=== PATIENT | male | born 1965 | race Caucasian/White ===

== ENCOUNTER 2017-03-10 15:27 | Day surgery (SDC) | payer OTHER ==
[2017-03-09 11:26] VITALS: BMI 26.6
[~2017-03-10 15:27] MED LIST: ceFAZolin IN SWFI 2 GM/20 ML SYRINGE IVP ONE
[2017-03-10] MEDS ORDERED: LACTATED RINGERS 1,000 ML IV ONE (15:46)
[2017-03-10] MEDS ORDERED: DEXAMETHASONE SOD PHOS (MDV) 100 MG/10 ML VIAL IVP ONE (15:46)
[2017-03-10] MEDS ORDERED: ONDANSETRON 4 MG/2 ML VIAL IVP ONE (15:47)
[2017-03-10] MEDS ORDERED: LIDOCAINE 1% 20 ML VIAL (10MG/ML) FOR IV START INTRADERMA ONE (15:47)
[2017-03-10] MEDS ORDERED: HYDROmorphone (PF) 1 MG/ML ONE (17:00)
[2017-03-10] MEDS ORDERED: LIDOCAINE 1% INJ 10MG/ML (20 ML MDV) ONE (17:00)
[2017-03-10] MEDS ORDERED: ROCURONIUM BROMIDE 10 MG/ML 10 ML VIAL IV ONE (17:00)
[2017-03-10] MEDS ORDERED: SUCCINYLCHOLINE CHLORIDE 100 MG/5 ML SYR IV ONE (17:00)
[2017-03-10] MEDS ORDERED: ePHEDrine SULFATE/0.9% NACL/PF 50 MG/5 ML SYRINGE IV ONE (17:00)
[2017-03-10] MEDS ORDERED: PROPOFOL 10 MG/ML 20 ML VIAL IV ONE (17:00)
[2017-03-10] MEDS ORDERED: MIDAZOLAM 2 MG/2 ML VIAL ONE (17:00)
[2017-03-10] MEDS ORDERED: PHENYLEPHRINE-0.9% NACL SYG 1 MG/10 ML SYRINGE ONE (17:00)
[2017-03-10] MEDS ORDERED: fentaNYL (PF) 50 MCG/ML 2 ML AMP ONE (17:00)
[2017-03-10] MEDS ORDERED: ceFAZolin 1,000 MG in SODIUM CHLORIDE 0.9% 1,000 ML IRRIGATION ONE (18:09)
[2017-03-10 19:01] VITALS: TEMP 97.8
[2017-03-10 19:03] VITALS: RESP 16
[2017-03-10] MEDS ORDERED: SODIUM CHLORIDE 0.9% 1,000 ML IV ONE (19:21)
[2017-03-10 20:04] VITALS: BP 146/85; PULSE 89
--- NOTE | 2017-03-11 13:48 | OP ---
OPERATIVE REPORT DATE OF PROCEDURE: 03/10/2017. PREOPERATIVE DIAGNOSIS: Left displaced midshaft clavicle fracture. POSTOPERATIVE DIAGNOSIS: Left displaced midshaft clavicle fracture. PROCEDURE PERFORMED: Open reduction, internal fixation, left clavicle fracture. SURGEON: Maurice Snyder MD. CLINICAL SERVICES SPECIALIST: DENICE Dobson. ANESTHESIA: General endotracheal. ESTIMATED BLOOD LOSS: 25 mL. COMPLICATIONS: None apparent. DISPOSITION: Postanesthesia care unit. INDICATIONS: Feng is a very pleasant 52-year-old male who fell onto his left shoulder. He had immediate pain and deformity noted about the clavicle. He presented to the emergency department. X-rays revealed a significantly displaced midshaft clavicle fracture. He was given a sling and appropriate follow up with me in my office. I saw him the other day. His displacement is 200%. The recommendation was for open reduction, internal fixation. The patient would like to proceed with that operative intervention. Long discussion was held with Feng with regards to treatment options. The risks of the procedure were all discussed with him in detail. These risks included, but were not limited to risk of infection, nerve damage, bleeding, pain, and a small risk of deep vein thrombosis, which could lead to fatal pulmonary embolism. Further risks include deep infection as well as possibility for nonunion and possibility for hardware irritation, which could require removal of the plate and screws. The patient understands the operation as well as the fact that there was no guarantee of improvement of his symptoms. An appropriate informed consent was obtained. DESCRIPTION OF THE PROCEDURE: The patient was identified in the preoperative holding area. Surgical site was marked by both the patient and myself. He was given 2 grams of Ancef IV for prophylactic purposes. He was then transferred to the operative suite. He was placed supine on the operating room table. The patient was then intubated endotracheally and received general anesthesia throughout the operative procedure. Examination under anesthesia was then performed and the findings were noted as above. The patient was then placed into the beach chair position well-padded in preparation for surgery. Great care was taken to ensure the cervical spine is in neutral alignment, well-padded and maintained that way throughout the operative procedure. Great care was also taken to ensure that his legs were appropriately padded as well. The patient's left upper extremity was then prepped and draped in usual sterile fashion. Standard surgical pause then undertaken to ensure that appropriate preoperative antibiotics have been given and that we were operating on the correct site. All staff in the room were in agreement and we proceeded. The acromion as well as the AC joint, coracoid were marked with surgical pen. The clavicle was also marked with surgical pen. I then marked the planned incision site on the anterior aspect of the clavicle with surgical pen. I then proceeded. The incision was then made with a 15-blade scalpel. Dissection was carried down utilizing the ArthroCare wand to the superior aspect of the clavicle. Great care was taken to ensure thick flaps for fascial and muscular coverage of the plate and screws at the end of the case. Dissection of the fracture was then carried out very carefully with a [place] and soft tissue elevator. This was done as to avoid any iatrogenic damage to the neurovascular structures. He had a midshaft highly displaced midshaft clavicle fracture. There was an anterior comminuted piece as well. This was fairly large. Great care was taken to minimize any periosteal dissection to maintain as much blood supply as possible to the fracture site. I then proceeded to reduce the fracture. Reduction clamps were then utilized. I then was able to use the plate to reduce the fracture as well. I chose an Acumed precontoured superior clavicle plate. This was a 3.5 mm plate. I placed the plate on the superior surface of the clavicle. I placed a 3.5 mm bicortical nonlocking screw through the oblong hole on the medial aspect of the fracture. This had excellent purchase in bone. I was then able to utilize the plate to reduce the fracture. I then placed a 3.5 mm bicortical nonlocking screw through the lateral oblong hole of the plate. This reduced the fracture very nicely. I then was able to reduce the anterior comminuted piece. This was fairly large. I did have a good cortical read on this fracture fragment. I was able to fix the fracture fragment with two 2.3 mm bicortical screws to both the medial and lateral fragment. These screws were anterior to posterior screws. They had excellent purchase in bone and were placed in compression mode. This fixed the anterior comminuted piece very nicely back to both the medial and lateral fragments. I then placed two 3.5 mm bicortical locking screws on both the medial aspect of the plate and the lateral aspect of the plate to complete the fixation. At this point in time, no further work seemed necessary. The fracture had been reduced as anatomically as possible. The large anterior comminuted piece was also reduced as anatomically as possible with good fixation. All the screws were well fixated in bone. At this point time, no further work seemed necessary. The wound was thoroughly irrigated with sterile saline solution with antibiotic added. The trapezial and deltoid fascia was closed with #1 Vicryl interrupted suture. This provided a good thick soft tissue closure over the fixation. The wound was again thoroughly irrigated with sterile saline solution with antibiotic added. The subcutaneous tissue was closed with 2-0 Vicryl interrupted suture and the skin was closed with a running 3-0 Quill suture. Dermabond was applied to the incision. Sterile compressive dressing was then applied. The patient's left upper extremity was placed into a standard sling. All sponge and needle counts were deemed correct prior to closure. The patient tolerated the procedure without apparent complication. He was transferred to the recovery room in stable condition. MMODNeida / IJN: [id number] /
== END 2017-03-10 20:16 | disposition home or self-care (01) ==
LOC: OR 15:27
PROVIDERS: ATTEND Orthopaedic Surgery Sports Medicine
DX: S42.022A Displaced fracture of shaft of left clavicle, initial encounter for closed fracture (principal); W00.0XXA Fall on same level due to ice and snow, initial encounter; Z87.891 Personal history of nicotine dependence
CPT/HCPCS: 23515; C1713; J2250; J0690 ×2; J2405; J2001; J3010; J1170; J1100; J2370; J0330; J2704

== ENCOUNTER 2017-05-23 08:32 | Day surgery (SDC) | payer OTHER ==
[2017-05-19 08:38] VITALS: BMI 26.6
[~2017-05-23 08:32] MED LIST changes: +LACTATED RINGERS 1,000 ML IV SCH; -ceFAZolin IN SWFI 2 GM/20 ML SYRINGE IVP ONE
[2017-05-23 09:11] VITALS: TEMP 98.5
[2017-05-23] MEDS ORDERED: LIDOCAINE 1% INJ 10MG/ML (20 ML MDV) ONE (09:53)
[2017-05-23] MEDS ORDERED: PROPOFOL 10 MG/ML 20 ML VIAL IV ONE (09:53)
--- NOTE | 2017-05-23 10:30 | P.PCN ---
Date of Procedure: 05/23/17 Procedure(s) Performed: Procedure: Colonoscopy and biopsy. Preoperative diagnosis: Screening for neoplasia. Postoperative diagnosis: Diminutive polyp in the distal sigmoid biopsied, otherwise, exam to the cecum within normal limits. Preparation: HalfLytely prep. Sedation: Was provided by anesthesia. Brief clinical history: The patient is a 52-year-old male who was scheduled for this evaluation for screening for neoplasia age being his risk factor. He has no abdominal complaints, bleeding or anemia. No family history of colon cancer. This would be his first colonoscopy. Procedure: With the patient on his left lateral decubitus position and after informed consent and adequate sedation, the perianal area was inspected and it did not show any fissures or fistulas. There were no masses felt on digital rectal examination. The Olympus CFQ 160L video colonoscope was then inserted in the rectum in the usual fashion and advanced to the cecum. The mucosa appeared healthy. There was a diminutive polyp in the distal sigmoid which was biopsied, otherwise, the exam to the cecum showed no large polyps or cancer or any obvious diverticular disease or other pathology. I retroflexed the endoscope in the rectum before the endoscope was withdrawn. The patient tolerated the procedure well. Plan: The patient was reassured. He will follow up with you as planned and I recommended repeat exam in 5-10 years depending on pathology results.
[2017-05-23 10:50] VITALS: BP 128/85; PULSE 59; RESP 16
== END 2017-05-23 11:04 | disposition home or self-care (01) ==
LOC: ORWHC2ENDO 08:32
DX: Z12.11 Encounter for screening for malignant neoplasm of colon (principal); K63.5 Polyp of colon; Z87.891 Personal history of nicotine dependence
CPT/HCPCS: 88305; 45380; J2001; J2704

== ENCOUNTER 2017-06-29 22:59 | Emergency (ER) | payer OTHER ==
[2017-06-29 23:04] VITALS: TEMP 98.1
[2017-06-29] MEDS ORDERED: SODIUM CHLORIDE 0.9% 1,000 ML IV STA (23:07)
[2017-06-29] MEDS ORDERED: RX INFO: IV CONTRAST WAS GIVEN 1 EACH MISC MISCELLANE PRN (23:07)
--- NOTE | 2017-06-29 23:11 | ED ---
General Adult HPI - General Chief complaint: Syncope Stated complaint: syncope Time Seen by Provider: 06/29/17 23:02 Source: patient, RN notes reviewed, old records reviewed Mode of arrival: EMS Limitations: no limitations - History of Present Illness Initial comments: This is a 52-year-old male the ER for evasive syncopal event. Patient does not feel well once getting up from sitting, walk across is complications did walking across into his kitchen and passed out. Patient states he has some right leg pain prior to passing out. At this time he has no complaints no headache no chest pain or shortness of breath no abdominal pain, no prior medical history no prior history of passing out. No recent travel history or sick contacts does have family history of DVT - Related Data Home Medications Medication Instructions Recorded Confirmed No Known Home Medications [No 05/19/17 06/29/17 Known Home Medications] Allergies Allergy/AdvReac Type Severity Reaction Status Date / Time No Known Allergies Allergy Verified 05/19/17 08:35 Review of Systems ROS Statement: Those systems with pertinent positive or pertinent negative responses have been documented in the HPI. ROS Other: All systems not noted in ROS Statement are negative. Past Medical History Past Medical History: No Reported History Additional Past Medical History / Comment(s): FX LT CLAVICLE LAST WEEK AFTER FALL ON ICE 02/2017 History of Any Multi-Drug Resistant Organisms: None Reported Past Surgical History: Orthopedic Surgery Additional Past Surgical History / Comment(s): RT KNEE SCOPE X 2. LT CLAVICLE SX Past Anesthesia/Blood Transfusion Reactions: No Reported Reaction Past Psychological History: No Psychological Hx Reported Smoking Status: Former smoker Past Alcohol Use History: Daily - Past Family History Mother Family Medical History: Deep Vein Thrombosis (DVT) General Exam Limitations: no limitations General appearance: alert, in no apparent distress Head exam: Present: atraumatic, normocephalic, normal inspection Eye exam: Present: normal appearance, PERRL, EOMI. Absent: scleral icterus, conjunctival injection, periorbital swelling ENT exam: Present: normal exam, mucous membranes moist Neck exam: Present: normal inspection. Absent: tenderness, meningismus, lymphadenopathy Respiratory exam: Present: normal lung sounds bilaterally. Absent: respiratory distress, wheezes, rales, rhonchi, stridor Cardiovascular Exam: Present: regular rate, normal rhythm, normal heart sounds. Absent: systolic murmur, diastolic murmur, rubs, gallop, clicks GI/Abdominal exam: Present: soft, normal bowel sounds. Absent: distended, tenderness, guarding, rebound, rigid Extremities exam: Present: normal inspection, full ROM, normal capillary refill. Absent: tenderness, pedal edema, joint swelling, calf tenderness Back exam: Present: normal inspection Neurological exam: Present: alert, oriented X3, CN II-XII intact Psychiatric exam: Present: normal affect, normal mood Skin exam: Present: warm, dry, intact, normal color. Absent: rash Course Vital Signs 06/29/17 23:01 Temperature 98.1 F Pulse Rate 56 L Respiratory 20 Rate Blood Pressure 148/80 O2 Sat by Pulse 97 Oximetry EKG Findings - EKG Comments: EKG Findings:: EKG shows normal sinus rhythm rate of 62, WA 206, QRS 108, QTC 401 Medical Decision Making - Lab Data Result diagrams: 06/29/17 23:10 06/29/17 23:10 Lab Results 06/29/17 06/29/17 06/29/17 Range/Units 23:10 23:10 23:10 WBC 5.6 (3.8-10.6) k/uL RBC 4.61 (4.30-5.90) m/uL Hgb 13.8 (13.0-17.5) gm/dL Hct 38.8 L (39.0-53.0) % MCV 84.3 (80.0-100.0) fL MCH 30.1 (25.0-35.0) pg MCHC 35.6 (31.0-37.0) g/dL RDW 12.8 (11.5-15.5) % Plt Count 184 (150-450) k/uL Neutrophils % 49 % Lymphocytes % 42 % Monocytes % 5 % Eosinophils % 2 % Basophils % 0 % Neutrophils # 2.7 (1.3-7.7) k/uL Lymphocytes # 2.4 (1.0-4.8) k/uL Monocytes # 0.3 (0-1.0) k/uL Eosinophils # 0.1 (0-0.7) k/uL Basophils # 0.0 (0-0.2) k/uL Sodium 138 (137-145) mmol/L Potassium 3.7 (3.5-5.1) mmol/L Chloride 99 (98-107) mmol/L Carbon Dioxide 23 (22-30) mmol/L Anion Gap 16 mmol/L BUN 18 (9-20) mg/dL Creatinine 0.90 (0.66-1.25) mg/dL Est GFR (CKD-EPI)AfAm >90 (>60 ml/min/1.73 sqM) Est GFR (CKD-EPI)NonAf >90 (>60 ml/min/1.73 sqM) Glucose 100 H (74-99) mg/dL Calcium 9.4 (8.4-10.2) mg/dL Magnesium 1.7 (1.6-2.3) mg/dL Total Bilirubin 0.5 (0.2-1.3) mg/dL AST 29 (17-59) U/L ALT 33 (21-72) U/L Alkaline Phosphatase 53 (38-126) U/L Total Creatine Kinase 124 (55-170) U/L CK-MB (CK-2) 1.4 (0.0-2.4) ng/mL CK-MB (CK-2) Rel Index 1.1 Troponin I <0.012 (0.000-0.034) ng/mL Total Protein 6.3 (6.3-8.2) g/dL Albumin 4.1 (3.5-5.0) g/dL Disposition Clinical Impression: Syncope Disposition: HOME SELF-CARE Condition: Good Instructions: Syncope (ED) Is patient prescribed a controlled substance at d/c from ED?: No Referrals: Blu Santamaria DO [Primary Care Provider] - 1-2 days
[2017-06-29 23:22] LABS: Basophils % (A) 0 %; Eosinophils # (A) 0.1 k/uL (0-0.7); Eosinophils % (A) 2 %; HCT 38.8 % (39.0-53.0); HGB 13.8 gm/dL (13.0-17.5); Lymphocytes # (A) 2.4 k/uL (1.0-4.8); Lymphocytes % (A) 42 %; MCH 30.1 pg (25.0-35.0); MCHC 35.6 g/dL (31.0-37.0); MCV 84.3 fL (80.0-100.0); Mean Platelet Volume 7.7; Monocytes # (A) 0.3 k/uL (0-1.0); Monocytes % (A) 5 %; Neutrophils # (A) 2.7 k/uL (1.3-7.7); Neutrophils % (A) 49 %; Platelet Count 184 k/uL (150-450); RBC 4.61 m/uL (4.30-5.90); RDW 12.8 % (11.5-15.5); WBC 5.6 k/uL (3.8-10.6)
[2017-06-29 23:31] LABS: ALT 33 U/L (21-72); AST 29 U/L (17-59); Albumin 4.1 g/dL (3.5-5.0); Alkaline Phosphatase 53 U/L (38-126); Anion Gap 16 mmol/L; Blood Urea Nitrogen 18 mg/dL (9-20); Calcium 9.4 mg/dL (8.4-10.2); Carbon Dioxide 23 mmol/L (22-30); Chloride 99 mmol/L (98-107); Glucose 100 mg/dL (74-99); Magnesium 1.7 mg/dL (1.6-2.3); Potassium 3.7 mmol/L (3.5-5.1); Sodium 138 mmol/L (137-145); Total Bilirubin 0.5 mg/dL (0.2-1.3); Total Protein 6.3 g/dL (6.3-8.2)
[2017-06-29 23:41] LABS: Creatine Kinase 124 U/L (55-170)
[2017-06-29 23:44] LABS: INR 1.1 (<1.2); Partial Thromboplastin Time 21.9 sec (22.0-30.0); Prothrombin Time 10.3 sec (9.0-12.0)
--- NOTE | 2017-06-29 23:46 | CT ---
EXAMINATION TYPE: CT brain sangeeta murrieta DATE OF EXAM: 06/29/2017 COMPARISON: NONE HISTORY: pt. had an episode of syncope from leg pain. CT DLP: 1545.30 mGycm Automated exposure control for dose reduction was used. TECHNIQUE: CT scan of the head and cervical spine are performed without contrast. FINDINGS: Ventricles and sulci appear normal. There is no mass effect nor midline shift. There is n o sign of intracranial hemorrhage. The calvarium is intact. Cervical vertebra have normal alignment. There is mild narrowing of cervical disc spaces from C3 to C 7. There is anterior spurring at C6-7. I see no sign of bony spinal stenosis. Facet joints are intact . The skull base is intact. There are emphysematous changes at the lung apices. IMPRESSION: Negative CT scan of the brain. Mild spondylotic changes in the cervical spine. No fracture.
[2017-06-29 23:54] LABS: Creatine Kinase MB 1.4 ng/mL (0.0-2.4); Troponin I <0.012 ng/mL (0.000-0.034)
--- NOTE | 2017-06-29 23:56 | CT ---
EXAMINATION TYPE: CT angio chest DATE OF EXAM: 06/29/2017 11:49 PM COMPARISON: NONE HISTORY: pt. had an episode of syncope from leg pain. CT DLP: 1917.50 mGycm Automated exposure control for dose reduction was used. CONTRAST: CTA scan of the thorax is performed with IV Contrast, patient injected with 100 mL of Isovue 370, pul monary embolism protocol. . FINDINGS: There are 3-D post processed images. Thoracic aorta has normal size without evidence of aneurysm or dissection. There is no mediastinal ad enopathy. Ascending aorta measures 3.6 cm. There are no hilar masses. I see no filling defects in the pulmonary arteries. Heart size is normal. There is no pericardial effusion. There is no pleural effu bon. There is mild subsegmental atelectasis at the lung bases. There is no evidence of a pulmonary m ass. Lungs are clear of consolidation. There is some mild reticular density at the right lung apex pr obably from scarring. There are mild emphysematous changes at the lung apices. Bony thorax is intact. . IMPRESSION: MILD PULMONARY EMPHYSEMA. SUBSEGMENTAL ATELECTASIS AT THE LUNG BASES. NO EVIDENCE OF PULMONARY EMBOLI SM.
--- NOTE | 2017-06-29 23:59 | CT ---
EXAMINATION TYPE: CT abdomen pelvis w con DATE OF EXAM: 06/29/2017 COMPARISON: NONE HISTORY: on synapse. pt. had an episode of syncope from leg pain. Abdominal pain CT DLP: 1917.50 mGycm Automated exposure control for dose reduction was used. TECHNIQUE: Helical acquisition of images was performed from the lung bases through the pelvis. CONTRAST: Performed without Oral Contrast and with IV Contrast, patient injected with 100 mL of Isovue 370. FINDINGS: Lung bases are clear of infiltrate. There is no pleural effusion. Heart size is normal. There is no p ericardial effusion. There is mild subsegmental atelectasis at the posterior lung bases. Liver spleen pancreas gallbladder appear normal. Bile ducts are not dilated. There is no adrenal mass. Kidneys show satisfactory contrast opacification. There is no hydronephrosi s. There is prominent right-sided renal pelvis. Ureters are not dilated. I see no renal obstruction. There is no retroperitoneal adenopathy. There is no ascites. Bladder distends smoothly. Prostate shawn ures 5 cm. Appendix is not seen. I see no sign of appendicitis. I see no intestinal wall thickening. There are no dilated loops. There are spondylotic changes in the lumbar spine. I see no focal bone destruction. IMPRESSION: NEGATIVE CT SCAN OF THE ABDOMEN AND PELVIS.
[2017-06-30 00:07] LABS: D-Dimer 1.79 mg/L FEU (<0.60)
[2017-06-30 00:51] VITALS: BP 124/71; PULSE 64; RESP 16
== END 2017-06-30 00:51 | disposition home or self-care (01) ==
LOC: EC 22:59
DX: R55 Syncope and collapse (principal); M79.604 Pain in right leg; Z87.891 Personal history of nicotine dependence
CPT/HCPCS: 36415; 93005; 85379; 80053; 82550; 82553; 83735; 84484; 85025; 85610; 85730; 72125; 70450; 71275; 74177; 99285; Q9967

== ENCOUNTER → 2017-09-13 | Outpatient (CLI) | payer OTHER ==
--- NOTE | 2017-09-13 23:38 | MR ---
EXAMINATION TYPE: MR knee RT wo con DATE OF EXAM: 09/13/2017 COMPARISON: None HISTORY: Right Knee pain and swelling x17 years TECHNIQUE: Multiplanar, multisequence imaging of the right knee is performed without IV contrast. FINDINGS: There is a large knee joint effusion. There is 2 cm popliteal cyst. The anterior and posterior crucia te ligaments are intact. There is moderate spurring on the patella. There is narrowing of the joint s paces medially and laterally. There is extensive spurring of the femoral and tibial condyles. There i s significant thinning of the medial meniscus. There is complex tear in the posterior horn medial men iscus extending to the inferior surface. There is very little lateral meniscus. On the T2 images there is mild increased signal on both sides of the lateral joint space. The medial collateral ligament appears intact. There is some increased si gnal in the lateral collateral ligament. IMPRESSION: Advanced osteoarthritis. Knee joint effusion with popliteal cyst. Partial tear lateral collateral ligament. Extensive tear with thinning of the posterior horn of the medial meniscus. There is very little lateral meniscus that apparently show significant thinning and lateral displacem ent. There is mild edema on both sides of the lateral joint space consistent with bone bruise.
== END | disposition home or self-care (01) ==
LOC: RADMRIMAIN 17:39
PROVIDERS: ATTEND Family Medicine
DX: M17.11 Unilateral primary osteoarthritis, right knee (principal); M71.21 Synovial cyst of popliteal space [Baker], right knee; M23.300 Other meniscus derangements, unspecified lateral meniscus, right knee

== ENCOUNTER → 2018-07-24 | Outpatient (CLI) | payer OTHER ==
--- NOTE | 2018-07-24 12:29 | XR ---
Left knee HISTORY: Left knee pain 3 views of the left knee There is tricompartmental marginal spurring and joint space loss. Suprapatellar increased density com patible joint effusion. Bone mineralization is slightly reduced. Alignment is normal. IMPRESSION: Osteoarthritis.
== END ==
LOC: RADXRMAIN 10:35
PROVIDERS: ATTEND Family Medicine
DX: M17.12 Unilateral primary osteoarthritis, left knee (principal)

== ENCOUNTER → 2018-09-04 | Outpatient (CLI) | payer OTHER ==
[2018-09-04 07:41] LABS: Basophils % (A) 1 %; Eosinophils # (A) 0.1 k/uL (0-0.7); Eosinophils % (A) 3 %; HCT 41.5 % (39.0-53.0); HGB 13.7 gm/dL (13.0-17.5); Lymphocytes # (A) 1.7 k/uL (1.0-4.8); Lymphocytes % (A) 43 %; MCH 29.3 pg (25.0-35.0); MCV 88.9 fL (80.0-100.0); Mean Platelet Volume 7.9; Monocytes # (A) 0.2 k/uL (0-1.0); Monocytes % (A) 6 %; Neutrophils # (A) 1.8 k/uL (1.3-7.7); Neutrophils % (A) 46 %; Platelet Count 163 k/uL (150-450); RBC 4.67 m/uL (4.30-5.90); RDW 13.6 % (11.5-15.5)
[2018-09-04 12:56] LABS: African American GFR (CKD) 100.6 (60.0-200.0); Anion Gap 4.3 mmol/L (4.00-12.00); Calcium 9.6 mg/dL (8.7-10.3); Carbon Dioxide 31.7 mmol/L (21.6-31.8); LDL Cholesterol,Calculated 72.6 mg/dL (0.0-131.0); Potassium 5.4 mmol/L (3.5-5.5); VLDL Calculation 10.4 mg/dL (5.00-40.00)
== END | disposition home or self-care (01) ==
LOC: LABWHC1 06:55
PROVIDERS: ATTEND Physician Assistant
DX: Z00.00 Encounter for general adult medical examination without abnormal findings (principal)
CPT/HCPCS: 36415; 80048; 80061; 84153; 85025

== ENCOUNTER → 2018-12-11 | Outpatient (CLI) | payer OTHER ==
--- NOTE | 2018-12-11 10:52 | US ---
EXAMINATION TYPE: US venous doppler duplex LE LT DATE OF EXAM: 12/11/2018 10:32 AM COMPARISON: NONE CLINICAL HISTORY: 53-year-old male M79.605 PAIN IN LT LEG. Left knee pain when patient stands. Patie nt states feeling a vein posterior left knee. No redness or swelling. No hx DVT. SIDE PERFORMED: Left TECHNIQUE: The lower extremity deep venous system is examined utilizing real time linear array sonog jace with graded compression, doppler sonography and color-flow sonography. FINDINGS: VESSELS IMAGED: External Iliac Vein (EIV) Common Femoral Vein Deep Femoral Vein Greater Saphenous Vein * Femoral Vein Popliteal Vein Small Saphenous Vein * Proximal Calf Veins (* superficial vessels) Left Leg: Negative for DVT. Community Development Officer notes: Appears positive for SVT posterior left knee. No vascular flow visualized. IMPRESSION: 1. No evidence for DVT within the left lower extremity imaged from the groin to the upper calf. 2. Prominent varicosities along the posterior aspect of the knee without detectable flow. Differentia l considerations include SVT versus very slow flow. Short interval follow-up can be considered.
--- NOTE | 2018-12-11 15:05 | XR ---
Left knee HISTORY: Left knee pain 3 views of the left knee, compared to prior exam 07/24/2018 Tricompartmental marginal spurring and joint space loss is again seen. Alignment is stable, bone mine ralization is normal. Suprapatellar increased density is compatible with joint effusion. Enthesophyte present at the insertion of the quadriceps tendon, there may be calcific tendinitis. impression: Osteoarthritis.
== END | disposition home or self-care (01) ==
LOC: RADUSWWP 09:45
PROVIDERS: ATTEND Family Medicine
DX: M17.12 Unilateral primary osteoarthritis, left knee (principal); M79.605 Pain in left leg

== ENCOUNTER → 2019-04-24 | Outpatient (CLI) | payer OTHER ==
--- NOTE | 2019-04-24 19:01 | ECHOF ---
Referral Reason:R94.31 Abn EKG MEASUREMENTS -------- HEIGHT: 195.6 cm WEIGHT: 104.3 kg BP: 134/77 RVIDd: 3.7 cm (< 3.3) IVSd: 1.2 cm (0.6 - 1.1) LVIDd: 4.9 cm (3.9 - 5.3) LVPWd: 1.3 cm (0.6 - 1.1) IVSs: 1.6 cm LVIDs: 3.2 cm LVPWs: 1.4 cm LA Diam: 3.1 cm (2.7 - 3.8) LAESV Index (A-L): 28.73 ml/m Ao Diam: 3.6 cm (2.0 - 3.7) AV Cusp: 2.4 cm (1.5 - 2.6) MV EXCURSION: 22.213 mm (> 18.000) MV EF SLOPE: 109 mm/s (70 - 150) EPSS: 1.2 cm MV E Marvin: 0.84 m/s MV DecT: 309 ms MV A Marvin: 0.71 m/s MV E/A Ratio: 1.17 TAPSE: 24.34 mm FINDINGS -------- Sinus rhythm. This was a technically adequate study. The left ventricular size is normal. There is mild concentric left ventricular hypertrophy. Overa ll left ventricular systolic function is normal with, an EF between 60 - 65 %. The right ventricle is mildly enlarged. Normal LA size by volume 22+/-6 ml/m2. The right atrium is normal in size. Interatrial and interventricular septum intact. The aortic valve is trileaflet and appears structurally normal. There is trace mitral regurgitation. The tricuspid valve appears structurally normal. The pulmonic valve was not well visualized. The aortic root size is normal. IVC Not well visulized. There is no pericardial effusion. CONCLUSIONS -------- 1. Sinus rhythm. 2. This was a technically adequate study. 3. The left ventricular size is normal. 4. There is mild concentric left ventricular hypertrophy. 5. Overall left ventricular systolic function is normal with, an EF between 60 - 65 %. 6. The right ventricle is mildly enlarged. 7. Normal LA size by volume 22+/-6 ml/m2. 8. The right atrium is normal in size. 9. Interatrial and interventricular septum intact. 10. The aortic valve is trileaflet and appears structurally normal. 11. There is trace mitral regurgitation. 12. The tricuspid valve appears structurally normal. 13. The pulmonic valve was not well visualized. 14. The aortic root size is normal. 15. IVC Not well visulized. 16. There is no pericardial effusion. CHIEF OPTOMETRY SERVICE: Gwendolyn Ramachandran RDCS
== END | disposition home or self-care (01) ==
LOC: RADECHMAIN 14:49
PROVIDERS: ATTEND Family Medicine
DX: R94.31 Abnormal electrocardiogram [ECG] [EKG] (principal)
CPT/HCPCS: 93306

== ENCOUNTER → 2019-04-24 | Outpatient (CLI) | payer OTHER ==
[2019-04-24 16:15] LABS: HCT 42.3 % (39.0-53.0); HGB 14.1 gm/dL (13.0-17.5); MCH 30.2 pg (25.0-35.0); MCHC 33.3 g/dL (31.0-37.0); MCV 90.7 fL (80.0-100.0); Platelet Count 181 k/uL (150-450); RBC 4.66 m/uL (4.30-5.90); RDW 12.3 % (11.5-15.5); WBC 6.1 k/uL (3.8-10.6)
[2019-04-24 16:20] LABS: Partial Thromboplastin Time 23.1 sec (22.0-30.0); Prothrombin Time 10.3 sec (9.0-12.0)
[2019-04-24 16:21] LABS: ALT 34 U/L (4-49); AST 31 U/L (17-59); African American GFR (CKD) >90 (>60 ml/min/1.73 sqM); Albumin 4.5 g/dL (3.5-5.0); Alkaline Phosphatase 53 U/L (38-126); Anion Gap 8 mmol/L; Blood Urea Nitrogen 19 mg/dL (9-20); Calcium 9.7 mg/dL (8.4-10.2); Carbon Dioxide 28 mmol/L (22-30); Chloride 99 mmol/L (98-107); Glucose 94 mg/dL (74-99); Non-African American GFR(CKD) >90 (>60 ml/min/1.73 sqM); Potassium 4.2 mmol/L (3.5-5.1); Sodium 135 mmol/L (137-145); Total Bilirubin 0.7 mg/dL (0.2-1.3)
== END | disposition home or self-care (01) ==
LOC: LABPAT 15:24
PROVIDERS: ATTEND Orthopaedic Surgery Sports Medicine
DX: Z01.812 Encounter for preprocedural laboratory examination (principal); M17.11 Unilateral primary osteoarthritis, right knee
CPT/HCPCS: 36415; 80053; 85027; 85610; 85730; 87070

== ENCOUNTER → 2019-11-02 | Outpatient (CLI) | payer OTHER ==
[2019-11-02 09:43] LABS: HCT 45.9 % (39.0-53.0); HGB 14.9 gm/dL (13.0-17.5); MCH 29.8 pg (25.0-35.0); MCHC 32.5 g/dL (31.0-37.0); MCV 91.6 fL (80.0-100.0); Mean Platelet Volume 8.1; Platelet Count 184 k/uL (150-450); RBC 5.01 m/uL (4.30-5.90); RDW 12.6 % (11.5-15.5); WBC 4.2 k/uL (3.8-10.6)
[2019-11-02 09:57] LABS: ALT 33 U/L (4-49); AST 32 U/L (17-59); African American GFR (CKD) >90 (>60 ml/min/1.73 sqM); Albumin 4.6 g/dL (3.5-5.0); Alkaline Phosphatase 55 U/L (38-126); Anion Gap 6 mmol/L; Blood Urea Nitrogen 18 mg/dL (9-20); Carbon Dioxide 31 mmol/L (22-30); Chloride 102 mmol/L (98-107); Glucose 110 mg/dL (74-99); Non-African American GFR(CKD) >90 (>60 ml/min/1.73 sqM); Potassium 4.6 mmol/L (3.5-5.1); Sodium 139 mmol/L (137-145); Total Protein 7.1 g/dL (6.3-8.2)
[2019-11-02 10:01] LABS: INR 0.9 (<1.2); Partial Thromboplastin Time 22.7 sec (22.0-30.0); Prothrombin Time 9.9 sec (9.0-12.0)
[2019-11-02 10:18] LABS: Appearance,Urine Clear (Clear); Bilirubin,Urine Negative (Negative); Blood,Urine Negative (Negative); Color,Urine Yellow; Glucose,Urine (UA) Negative (Negative); Ketones,Urine Negative (Negative); Leukocyte Esterase,Urine Negative (Negative); Nitrite,Urine Negative (Negative); PH, Urine 6.5 (5.0-8.0); Protein,Urine Negative (Negative); Specific Gravity,Urine 1.012 (1.001-1.035); Urobilinogen,Urine <2.0 mg/dL (<2.0)
== END | disposition home or self-care (01) ==
LOC: LABPAT 08:48
PROVIDERS: ATTEND Orthopaedic Surgery Sports Medicine
DX: Z01.818 Encounter for other preprocedural examination (principal); M17.11 Unilateral primary osteoarthritis, right knee; Z01.812 Encounter for preprocedural laboratory examination
CPT/HCPCS: 80053; 81003; 85027; 85610; 85730; 87070

== ENCOUNTER → 2019-11-02 | Outpatient (CLI) | payer OTHER ==
[2019-11-02 16:41] LABS: Chol/HDL Ratio 2.63; LDL Cholesterol,Calculated 95.6 mg/dL (0.0-131.0); VLDL Calculation 21.4 mg/dL (5.00-40.00)
[2019-11-02 18:00] LABS: Hemoglobin A1C 5.2 % (4.0-6.0)
== END | disposition home or self-care (01) ==
LOC: LABWHC1 08:50
PROVIDERS: ATTEND Nurse Practitioner Family
DX: Z00.00 Encounter for general adult medical examination without abnormal findings (principal); Z13.1 Encounter for screening for diabetes mellitus; Z12.5 Encounter for screening for malignant neoplasm of prostate
CPT/HCPCS: 36415; 80061; 83036; 84153

== ENCOUNTER 2019-11-15 05:31 | Observation (INO) | payer OTHER ==
[2019-11-14 12:34] VITALS: BMI 26.6
[~2019-11-15 05:31] MED LIST changes: +ACETAMINOPHEN TAB 500 MG TAB PO ONE; +GABAPENTIN 300 MG CAP PO ONE; -LACTATED RINGERS 1,000 ML IV SCH; +MELOXICAM 7.5 MG TAB PO ONE; +TRANEXAMIC ACID 1,000 MG in SODIUM CHLORIDE 0.9% 100 ML IVPB ONE
[2019-11-15] MEDS ORDERED: DEXAMETHASONE SOD PHOSPHATE 10 MG/ML 1 ML VIAL IV ONE (05:47)
[2019-11-15] MEDS ORDERED: ONDANSETRON 4 MG/2 ML VIAL IVP PRN ×2 (05:47→09:24)
[2019-11-15] MEDS ORDERED: HYDROmorphone 0.5 MG/0.5 ML SYRINGE IVP PRN ×2 (05:47→09:24)
[2019-11-15] MEDS ORDERED: LIDOCAINE 1% (10MG/ML) FOR IV START INTRADERMA PRN (05:47)
[2019-11-15] MEDS ORDERED: LACTATED RINGERS 1,000 ML IV SCH (05:47)
[2019-11-15] MEDS ORDERED: fentaNYL (PF) 50 MCG/ML 2 ML AMP IV ONE (06:36)
[2019-11-15] MEDS ORDERED: MIDAZOLAM 2 MG/2 ML VIAL IV ONE (06:36)
[2019-11-15] MEDS ORDERED: PROPOFOL 10 MG/ML 20 ML VIAL IV ONE (06:55)
[2019-11-15] MEDS ORDERED: diphenhydrAMINE 50 MG/ML 1 ML VIAL ONE (06:55)
[2019-11-15] MEDS ORDERED: SODIUM CHLORIDE 0.9% 100 ML BAG ONE (06:55)
[2019-11-15] MEDS ORDERED: TRANEXAMIC ACID 1,000 MG/10 ML VIAL ONE (06:55)
[2019-11-15] MEDS ORDERED: MIDAZOLAM 2 MG/2 ML VIAL ONE (06:55)
[2019-11-15] MEDS ORDERED: fentaNYL (PF) 50 MCG/ML 2 ML AMP ONE (06:55)
[2019-11-15] MEDS: ROPIVACAINE 246.25 MG, EPINEPHrine 0.5 MG, KETOROLAC 30 MG, cloNIDine HCL/PF 80 MCG, WA... MISCELLANE ONE ×10 (07:41→08:15)
[2019-11-15] MEDS ORDERED: LACTATED RINGERS 1,000 ML IV ONE (07:51)
[2019-11-15] MEDS ORDERED: ceFAZolin 3,000 MG in SODIUM CHLORIDE 0.9% IRRIGATIO 3,000 ML IRRIGATION ONE (07:52)
--- NOTE | 2019-11-15 08:27 | P.ANPRN ---
Procedure Note - Anesthesia - Nerve Block Performed Right Adductor Canal Infusion Time Out Performed: Yes ([id number]) Date of Procedure: 11/15/19 Procedure Start Time: 06:36 Procedure Stop Time: 06:42 Location of Patient: PreOp Indication: Acute Post-Operative Pain, Requested by Surgeon Specifically requested for management of pain by DrPedro: Maurice Snyder Sedation Type: Sedate with meaningful contact maintained Preparation: Sterile Prep Position: Supine Catheter Depth at Skin (cm): 9 Catheter: Indwelling Needle Types: Pajunk Needle Gauge: 21 Ultrasound used to visualize needle placement: Yes Ultrasound used to observe medication spread: Yes Injectate: 0.5% Ropivacaine (see comment for volume) (20cc) Blood Aspirated: No Pain Paresthesia on Injection Noted: No Resistance on Injection: Normal Image Stored and Saved: Yes Events: Uneventful and Well Tolerated
[2019-11-15] MEDS ORDERED: ROPIVACAINE 0.2%-NS ON-Q PUMP 1,090 MG, EMPTY PAIN BALL 1 EACH MISCELLANE PRN (09:06)
[2019-11-15] MEDS ORDERED: hydrOXYzine pamoate 25 MG CAP PO PRN (09:24)
[2019-11-15] MEDS ORDERED: bisacodyL 10 MG SUPP RECTAL PRN (09:24)
[2019-11-15] MEDS ORDERED: NA PHOS,M-B/NA PHOS,DI-BA 133 ML ENEMA RECTAL PRN (09:24)
[2019-11-15] MEDS ORDERED: ACETAMINOPHEN TAB 325 MG TAB PO PRN (09:24)
[2019-11-15] MEDS ORDERED: diazePAM 5 MG TAB PO PRN (09:24)
[2019-11-15] MEDS ORDERED: NALOXONE 0.4 MG/ML 1 ML VIAL IV PRN (09:24)
[2019-11-15] MEDS ORDERED: HYDROmorphone 1 MG/ML 1 ML SYRINGE IVP PRN (09:24)
[2019-11-15] MEDS ORDERED: MAGNESIUM HYDROXIDE 2,400 MG/10 ML CUP PO PRN (09:24)
[2019-11-15] MEDS ORDERED: traMADol 50 MG TAB PO PRN (09:24)
[2019-11-15] MEDS ORDERED: TEMAZEPAM 15 MG CAP PO PRN (09:24)
--- NOTE | 2019-11-15 09:27 | XR ---
EXAMINATION TYPE: XR knee limited RT DATE OF EXAM: 11/15/2019 CLINICAL HISTORY: Right knee pain and arthritis status post total knee replacement. TECHNIQUE: Portable AP and crosstable lateral views of the right knee are obtained immediately posto peratively. COMPARISON: None FINDINGS: Metallic hardware from total right knee arthroplasty is seen and appears satisfactory in a lignment and position. There is evidence of recent surgery with diffuse subcutaneous gas and soft ti ssue swelling noted. IMPRESSION: METALLIC HARDWARE FROM TOTAL RIGHT KNEE ARTHROPLASTY IS SATISFACTORY IN ALIGNMENT.
[2019-11-15] MEDS: HYDROcodone/APAP 10-325MG 1 EACH TAB PO PRN (10:44)
[2019-11-15] MEDS: LACTATED RINGERS 1,000 ML IV SCH ×2 (11:02→20:20)
--- NOTE | 2019-11-15 16:19 | OP ---
OPERATIVE REPORT DATE OF PROCEDURE: 11/15/2019 SURGEON: Maurice Snyder MD [facility] NURSE: Delta Gallardo PA-C. PREOPERATIVE DIAGNOSIS: Right knee osteoarthrosis. POSTOPERATIVE DIAGNOSIS: Right knee osteoarthrosis. OPERATION: Right total knee arthroplasty. ANESTHESIA: Spinal with sedation. ESTIMATED BLOOD LOSS: 100 mL. TOURNIQUET: Tourniquet time was 54 minutes at 250 mmHg. COMPLICATIONS: None apparent. DRAINS: None. DISPOSITION: Post-Anesthesia Care Unit. INDICATIONS: Feng is a 54-year-old male with a longstanding history of right knee pain. History and physical examination are consistent with advanced right knee osteoarthrosis. He has been through significant nonoperative management up to this point. Further treatment options were discussed and he has decided to go forward with right total knee arthroplasty. The risks of the procedure were discussed with him in detail. These risks include but are not limited to risk of infection, nerve damage, bleeding, pain, and a small risk of deep vein thrombosis which could lead to fatal pulmonary embolism. There is also a risk of loosening of the implant which could require revision operation. The patient understands these risks. All of his questions were answered to his satisfaction. Appropriate informed consent was obtained. DESCRIPTION OF PROCEDURE: The patient was identified in the preoperative holding area. Surgical site was marked by both the patient and myself. He was given 2 grams of Ancef IV for prophylactic purposes. He was then transferred to the operative suite. He was placed supine on the operating room table. Spinal anesthetic was then administered and dosed per the anesthesia department without apparent complication. Examination under anesthesia was then performed. The patient was 5 to 7 degrees shy of full extension. He had 100 degrees of flexion. The medial collateral ligament, lateral collateral ligament and posterior cruciate ligaments were stable. Tourniquet was then placed high on the right upper thigh, well padded in preparation for surgery. The patient's right lower extremity was then prepped and draped in the usual sterile fashion. A standard surgical pause was then undertaken to ensure that we were operating on the correct site and that appropriate preoperative antibiotics had been given. All staff were in agreement and we proceeded. The outlines of the patella were marked with a surgical pen. A planned 12 cm vertical incision centered over the patella was marked with a surgical pen. The leg was then exsanguinated with an Esmarch dressing. The knee was then flexed and the tourniquet was inflated to 250 mmHg. The total tourniquet time for the procedure was 54 minutes. Incision was then made with a 10-blade scalpel. Dissection was carried down sharply to the overlying fascia. Great care was taken to minimize the skin flaps. The knee was then exposed using a standard medial parapatellar approach. A small cuff of quadriceps tendon was then left for suturing. He was in quite a bit of valgus preoperatively. A very minimal medial release was made. This was done just for placement of the medial retractors. The medial meniscus was then excised as well. The lateral meniscus was also released anteriorly. The leg was then externally rotated. The patella was everted. The knee was flexed. Retractors were then placed to protect the collateral ligaments. I then proceeded to remove the infrapatellar fat pad. This was excised sharply tangentially with fibers of the patellar tendon. I then proceeded to remove the peripheral osteophytes. This was done with a rongeur. I then proceeded with the distal femoral resection. He did have a flexion contracture. A planned 11 mm resection was then done. The femoral canal was then entered in the midline of the femur approximately 10 mm anterior to the origin of the posterior cruciate ligament. The kuldip was then advanced down the center of the femur and placed intramedullary. Based on the preoperative radiographs, the angle between the anatomic and mechanical axis of the femur was approximately 4 to 5 degrees. The valgus angle of this femoral cutting guide was then set at 4 degrees for the right knee. The distal femoral cutting guide was then advanced over the intramedullary kuldip. This was seated firmly against the femur. I then, as mentioned, planned to take 11 mm off the distal femur. The cutting block was then secured onto the femur with pins. The jig was removed. The distal femoral cut was made through the slot of the block. The pins were then removed. The distal cutting block was removed. The accuracy of the distal femoral cuts was checked with 2 flat bars. I then proceeded with femoral sizing. Posterior referencing sizing guide was held firmly against the resected distal surface of the femur. The posterior condyles were resting on the posterior plane of the guide. The sizing stylus then placed onto the anterior femur. The size was measured as a size 8. I then assessed for femoral rotation. The plan was for 3 degrees of external rotation. Three degrees of external rotation was placed onto the jig. These holes were then marked. I then confirmed the rotation by 3 separate methods. This was done using epicondylar axis as well as Whitesides line and posterior referencing. It was deemed that the external rotation was proper. I then went forward with placing the femoral cutting block. This was placed over the previously placed pin holes. The Mendez wing was then placed onto the anterior slots to ensure that we would not notch the anterior femur with the anterior femoral cut. I then proceeded with the anterior femoral cut. This was flush with the anterior cortex of the femur. The posterior cuts were then made followed by the anterior chamfer cut and then the posterior chamfer cut. The cutting block was then removed. Throughout the resection, the collateral ligaments were protected with retractors. I then placed a trial size 8 femur. It fit very nicely medial to lateral and fit flush with the distal end of the femur. The drill holes were then made. I then proceeded with the tibial cut. I planned for a cruciate-retaining knee. The guide was placed and set for varus, valgus and for slope. The height was set for an approximate 2 mm resection from the lateral tibial plateau, which was the lower side. I was happy with the alignment and the amount of resection. The cutting block was then pinned to the proximal tibia. The alignment kuldip was removed. The proximal tibia was resected with a reciprocating saw. Again this was done with retractors protecting the collateral ligaments as well as the posterior cruciate ligament. I then proceeded to evaluate the flexion and extension gaps. A 10 mm block was then placed. The flexion and extension gaps were equal. I then proceeded with resection of the posterior osteophytes. Very minimal posterior osteophytes. This was done using a curved osteotome. This resected the posterior osteophytes, and posterior capsule stripping was done off the posterior aspect of the femur at this time. The osteophytes were then removed. I then proceeded with resection of the patella. The thickness of the patella was measured using the caliper. The thickness was 25 mm. The thickness of the anticipated patellar dome was taken into account. The resection was performed and confirmed to be equal in 4 quadrants using a caliper. Approximately 14 mm of bone remained after the resection. A 35 x 9 standard patellar trial was then placed. The holes were drilled. The trial was then placed. I then proceeded with sizing the tibial plate. A size G tibial plate fit very nicely. I then placed the trial femur, the tibial tray and the patellar button. A 10 mm trial tibial insert was also placed. The components fit very nicely. He had full extension and flexion. The extension and flexion gaps were equal and stable to both varus and valgus stress. The patella tracked appropriately. The tibial tray rotation was then marked with a Bovie. This was externally rotated properly. I then proceeded with tibial preparation first. I first drilled the femoral holes and removed the femoral component. The tibial tray was then set for proper external rotation as well as mediolateral placement onto the tibia. It was then pinned into place. I then proceeded with punching the keel. I then decided to proceed with cementing of all our components. The knee was thoroughly irrigated with sterile saline solution via pulse lavage. The lateral geniculate artery was identified and cauterized. All blood was removed from the bone of the tibia, femur and patella with pulse lavage. I then proceeded with cementing. Two packs of antibiotic bone cement were prepared on the back table by the surgical physician assistant. I then proceeded with cementing of the tibia first. The cement was impacted into the keel as well as deeply seated in the bone. A second coat of cement was then placed. The tibia was then impacted into place. Excess cement was removed with Ely's and Joker's. I then proceeded with cementing of the femoral component. The femoral component was also cemented using sterile technique. Excess cement was removed. A 10 mm trial insert was also placed into the knee. It was brought into full extension with a constant axial load placed until the cement had hardened. The patellar component was then cemented. This was held firmly with a compressive device until the cement had dried. When the cement had dried, the knee was taken out of extension. All excess cement was removed from around the prosthesis. I then trialed the knee with a 10 mm insert. I then proceeded to trial with an 11 mm insert. Flexion and extension gaps felt better. The knee was stable with an 11 mm insert. It came into full extension. I decided to go forward with an 11 mm cross-linked cruciate-retaining tibial insert. Polyethylene was then placed on the tibial tray and locked into place. The knee was then reduced. The knee was again further irrigated with sterile saline solution with antibiotic added. The tourniquet was then deflated. Total tourniquet time for the procedure was 54 minutes at 250 mmHg. Final components were Ayden Persona size 8, cruciate-retaining femoral component, size G, tibial tray, an 11 mm medial-congruent cruciate-retaining polyethylene insert and a 35 x 9 mm patella. I then proceeded with closure. Again the knee was thoroughly irrigated. The quadriceps tendon and the medial retinaculum were reapproximated with #2 Ethibond suture. The extensor mechanism was then closed with a running #2 Quill suture. Subcutaneous tissues were closed with 2-0 Vicryl interrupted suture. The skin was closed with running 3-0 Quill suture. Dermabond was applied to the incision. Sterile compressive dressings were then applied. All sponge and needle counts were deemed correct prior to closure. The patient tolerated the procedure without apparent complication. He was transferred to the recovery room in stable condition. MMODL / IJN: [id number] /
[2019-11-15 16:35] LABS: Glucose,Whole Blood 127 mg/dL (75-99)
--- NOTE | 2019-11-15 17:32 | CT ---
EXAMINATION: CT brain wo con DATE AND TIME: 11/15/2019 5:13 PM CLINICAL INDICATION: PHH; syncope, right supraorbital injury, fall, head injury TECHNIQUE: Standard departmental protocol.; 1142.4; COMPARISON: CT 06/29/2017 FINDINGS: The calvarium is intact. There is no intracranial hemorrhage. There is no intracranial mass or mass effect. No definite new intra-axial or extra-axial attenuation defect. The paranasal sinuses, middle ear cavities, and mastoid sinus air cells are clear. The orbits are unremarkable. IMPRESSION: NO ACUTE PROCESS.
[2019-11-15] MEDS: HYDROcodone/APAP 5-325MG 1 EACH TAB PO PRN (18:33)
[2019-11-15] MEDS: ASPIRIN 81 MG PO SCH (20:19)
[2019-11-15] MEDS: SENNOSIDES-DOCUSATE SODIUM 1 EACH TAB PO SCH (20:20)
[2019-11-15] MEDS: HYDROmorphone 0.5 MG/0.5 ML SYRINGE IVP PRN (20:26)
--- NOTE | 2019-11-15 22:36 | P.CONS ---
History of Present Illness - Reason for Consult Consult date: 11/15/19 Medical management - Chief Complaint Elective right total knee arthroplasty - History of Present Illness Patient is a 54-year-old male with a known history of osteoarthritis, previous history of smoking and family history of DVT was admitted to the hospital for elective right total knee arthroplasty. Patient tolerated the procedure very well. Currently pain is controlled with nerve block. Patient otherwise denied any complaints of chest pain or shortness of breath. No headache or dizziness or lightheadedness. No fever no chills. Apparently patient had an unwitnessed fall while he was in the bathroom. Patient sustained abrasion on the forehead and denied any complaints of headache. No other complaints of joint pain. CT head showed no acute process. Laboratory showed blood sugar is 127 and troponin less than 0.012 Review of Systems Constitutional: Patient denies any fever or chills . No generalized weakness or weight loss. Abdomen: Patient denies nausea vomiting abdominal pain or diarrhea. Cardiovascular: Patient denies any chest pain or short of breath no palpitations. Respiratory: patient denied any cough is from production. No shortness of breath Neurologic: Patient denied any numbness or tingling headache. Musculoskeletal: Patient denies any complaints of joint swelling or deformity. Skin: Negative Psychiatric: Negative Endocrine: No heat or cold intolerance. No recent weight gain. Genitourinary: No dysuria or hematuria. All other 14 point ROS negative except the above Past Medical History Past Medical History: Osteoarthritis (OA) Additional Past Medical History / Comment(s): varicose veins History of Any Multi-Drug Resistant Organisms: None Reported Past Surgical History: Orthopedic Surgery Additional Past Surgical History / Comment(s): LT CLAVICLE SX(Fx), arthroscopy x 2 rt knee, Past Anesthesia/Blood Transfusion Reactions: No Reported Reaction Additional Past Anesthesia/Blood Transfusion Reaction / Comm: no hx blood transfusion Smoking Status: Former smoker - Past Family History Mother Family Medical History: Deep Vein Thrombosis (DVT) Father Family Medical History: Cancer Medications and Allergies Home Medications Medication Instructions Recorded Confirmed Type Fish Oil(Dose Unknown) 1 tab PO DAILY 05/04/19 11/14/19 History Multivitamins, Thera [Multivitamin 1 tab PO DAILY 05/04/19 11/14/19 History (formulary)] Ibuprofen 800 mg PO Q8H PRN 11/14/19 11/15/19 History Vitamin D3 (Unk Dose) 1 tab PO DAILY 11/14/19 History Allergies Allergy/AdvReac Type Severity Reaction Status Date / Time No Known Allergies Allergy Verified 11/14/19 12:28 Physical Exam Vitals: Vital Signs Temp Pulse Resp BP Pulse Ox 11/15/19 10:15 48 L 16 108/54 98 11/15/19 10:00 52 L 16 110/58 97 11/15/19 09:45 43 L 16 110/58 98 11/15/19 09:30 41 L 16 108/59 98 11/15/19 09:15 43 L 16 113/60 98 11/15/19 09:00 97 F L 47 L 12 116/56 98 11/15/19 06:45 51 L 16 110/64 100 11/15/19 06:28 56 L 16 119/72 100 11/15/19 06:09 97.4 F L 70 16 125/76 97 Intake and Output 11/14/19 11/15/19 11/15/19 22:59 06:59 14:59 Intake Total 200 1451 Output Total 100 Balance 200 1351 Intake: IV 200 1451 Output: Estimated Blood Loss 100 Other: Weight 102.5 kg PHYSICAL EXAMINATION: Patient is lying in the bed comfortably, no acute distress, awake alert and oriented.. HEENT: Normocephalic. Neck is supple. Pupils reactive. Nostrils clear. Oral cavity is moist. Ears reveal no drainage. Neck reveals no JVD, carotid bruits, or thyromegaly. CHEST EXAMINATION: Trachea is central. Symmetrical expansion. Lung franklin clear to auscultation and percussion. CARDIAC: Normal S1, S2 with no gallops. No murmurs ABDOMEN: Soft. Mild lower abdominal tenderness. No guarding no rigidity. Bowel sounds normal. No organomegaly. No abdominal bruits. Extremities: reveal no edema. No clubbing or cyanosis Neurologically awake, alert, oriented x3 with well-coordinated movements. No focal deficits noted Skin: No rash or skin lesions. Psychiatric: Coperative. Nonsuicidal Musculoskeletal: No joint swelling or deformity. Right knee surgical site is intact. No swelling noted.. Assessment and Plan Assessment: Status post right total knee arthroplasty. Postoperative day 0 Status post fall likely orthostatic hypotension. CT head negative. Osteoarthritis Family history of DVTs in his mother. DVT prophylaxis. Plan: Patient will be continued on pain management, bowel regimen and DVT prophylaxis. Encourage incentive spirometry and ambulation. Will check orthostatic vitals. Continue to follow closely. PT OT was consulted. Otherwise continue with current management and further recommendations based on the clinical course. Time with Patient: Greater than 30
[2019-11-15 23:07] LABS: African American GFR (CKD) >90 (>60 ml/min/1.73 sqM); Anion Gap 2 mmol/L; Blood Urea Nitrogen 17 mg/dL (9-20); Calcium 8.6 mg/dL (8.4-10.2); Carbon Dioxide 27 mmol/L (22-30); Chloride 103 mmol/L (98-107); Glucose 114 mg/dL (74-99); Magnesium 1.7 mg/dL (1.6-2.3); Non-African American GFR(CKD) >90 (>60 ml/min/1.73 sqM); Potassium 4.3 mmol/L (3.5-5.1); Sodium 132 mmol/L (137-145)
[2019-11-15 23:10] LABS: Basophils % (A) 0 %; Eosinophils % (A) 0 %; HCT 35.4 % (39.0-53.0); Lymphocytes # (A) 1.3 k/uL (1.0-4.8); Lymphocytes % (A) 11 %; MCH 30.4 pg (25.0-35.0); MCHC 33.5 g/dL (31.0-37.0); MCV 90.6 fL (80.0-100.0); Mean Platelet Volume 7.9; Monocytes # (A) 0.7 k/uL (0-1.0); Monocytes % (A) 6 %; Neutrophils # (A) 9.7 k/uL (1.3-7.7); Neutrophils % (A) 82 %; Platelet Count 160 k/uL (150-450); RBC 3.91 m/uL (4.30-5.90); RDW 12.7 % (11.5-15.5); WBC 11.8 k/uL (3.8-10.6)
[2019-11-15 23:13] LABS: HGB 11.9 gm/dL (13.0-17.5)
[2019-11-16] MEDS: HYDROcodone/APAP 10-325MG 1 EACH TAB PO PRN ×4 (00:46→17:48)
[2019-11-16] MEDS: LACTATED RINGERS 1,000 ML IV SCH ×3 (01:26→20:35)
[2019-11-16 05:49] LABS: Basophils % (A) 0 %; Eosinophils % (A) 1 %; HCT 36.2 % (39.0-53.0); HGB 11.9 gm/dL (13.0-17.5); Lymphocytes # (A) 1.3 k/uL (1.0-4.8); Lymphocytes % (A) 18 %; MCH 29.9 pg (25.0-35.0); MCHC 32.9 g/dL (31.0-37.0); MCV 90.6 fL (80.0-100.0); Mean Platelet Volume 8.1; Monocytes # (A) 0.5 k/uL (0-1.0); Monocytes % (A) 7 %; Neutrophils # (A) 5.3 k/uL (1.3-7.7); Neutrophils % (A) 73 %; Platelet Count 146 k/uL (150-450); RBC 3.99 m/uL (4.30-5.90); RDW 12.5 % (11.5-15.5); WBC 7.3 k/uL (3.8-10.6)
[2019-11-16] MEDS: HYDROmorphone 0.5 MG/0.5 ML SYRINGE IVP PRN (06:00)
[2019-11-16] MEDS: ASPIRIN 81 MG PO SCH ×2 (07:23→20:35)
--- NOTE | 2019-11-16 09:26 | P.PN ---
Subjective Progress Note Date: 11/16/19 Principal diagnosis: RTKA Patient is seen at bedside this morning. He is postop day #1 from right total knee arthroplasty. He had some episodes of orthostatic hypotension/fainting but is feeling fine currently. he has a heart monitor in place. He has pain at the surgical site as expected but denies any other new complaints. He denies numbness, tingling or calf pain. Review of systems is negative for fever, chills, chest pain, shortness of breath or other Objective - Vital Signs Vital signs: Vital Signs Temp 97.6 F 11/16/19 07:00 Pulse 69 11/16/19 07:00 Resp 18 11/16/19 07:00 BP 115/68 11/16/19 07:00 Pulse Ox 99 11/16/19 07:00 Intake & Output 11/15/19 11/16/19 11/16/19 18:59 06:59 18:59 Intake Total 1451 300 Output Total 100 950 Balance 1351 -650 Weight 102.5 kg Intake: IV 1451 Intake, IV Titration 300 Amount Lactated Ringers 1,000 ml 300 @ 100 mls/hr IV .Q10H [facility] Rx#:[id number] Output: Urine 950 Estimated Blood Loss 100 Other: Voiding Method Urinal # Voids 2 - Exam Inspection reveals a benign surgical wound. There is no active bleeding or drainage. Neurovascular status is intact throughout the lower extremity with motor and sensation fully intact. Calf is soft and nontender. 2+ dorsalis pedis pulse and less than 2 second cap refill is present. HEENT: autraumatic, EEOMI, PERRLA. CN II-XII intact bilat - Constitutional General appearance: Present: no acute distress - Labs CBC & Chem 7: 11/16/19 05:33 11/15/19 22:41 Labs: Abnormal Lab Results - Last 24 Hours (Table) 11/15/19 11/15/19 11/15/19 Range/Units 16:34 22:41 22:41 WBC 11.8 H (3.8-10.6) k/uL RBC 3.91 L (4.30-5.90) m/uL Hgb 11.9 L D (13.0-17.5) gm/dL Hct 35.4 L (39.0-53.0) % Plt Count (150-450) k/uL Neutrophils # 9.7 H (1.3-7.7) k/uL Sodium 132 L (137-145) mmol/L Glucose 114 H (74-99) mg/dL POC Glucose (mg/dL) 127 H (75-99) mg/dL 11/16/19 Range/Units 05:33 WBC (3.8-10.6) k/uL RBC 3.99 L (4.30-5.90) m/uL Hgb 11.9 L (13.0-17.5) gm/dL Hct 36.2 L (39.0-53.0) % Plt Count 146 L (150-450) k/uL Neutrophils # (1.3-7.7) k/uL Sodium (137-145) mmol/L Glucose (74-99) mg/dL POC Glucose (mg/dL) (75-99) mg/dL Assessment and Plan (1) Status post total right knee replacement Narrative/Plan: He will continue with routine postop orthopedic protocol including pain management, wound care, PT, DVT prophylaxis and medical management. Expect that he will transfer to home tomorrow if ok with IM/cardiology Current Visit: Yes Status: Acute Priority: Medium Code(s): Z96.651 - PRESENCE OF RIGHT ARTIFICIAL KNEE JOINT SNOMED Code(s): 2416957258934 Time with Patient: Less than 30
[2019-11-16] MEDS: MULTIVITAMINS, THERA 1 EACH TAB PO SCH (12:07)
[2019-11-16] MEDS: FLUDROCORTISONE 0.1 MG TAB PO SCH (12:08)
--- NOTE | 2019-11-16 12:37 | ECHOF ---
Referral Reason:syncope MEASUREMENTS -------- HEIGHT: 195.6 cm WEIGHT: 102.1 kg BP: RVIDd: 3.4 cm (< 3.3) IVSd: 1.3 cm (0.6 - 1.1) LVIDd: 4.3 cm (3.9 - 5.3) LVPWd: 1.3 cm (0.6 - 1.1) IVSs: 1.6 cm LVIDs: 2.6 cm LVPWs: 1.6 cm LA Diam: 3.1 cm (2.7 - 3.8) Ao Diam: 3.4 cm (2.0 - 3.7) AV Cusp: 2.5 cm (1.5 - 2.6) MV EXCURSION: 17.332 mm (> 18.000) MV EF SLOPE: 61 mm/s (70 - 150) EPSS: 2.6 cm MV E Marvin: 1.12 m/s MV DecT: 286 ms MV A Marvin: 0.78 m/s MV E/A Ratio: 1.43 FINDINGS -------- Sinus rhythm. This was a technically difficult study with suboptimal views. The left ventricular size is normal. There is mild concentric left ventricular hypertrophy. Overa ll left ventricular systolic function is normal with, an EF between 60 - 65 %. The right ventricle is mildly enlarged. The left atrial size is normal. The right atrium is normal in size. The aortic valve was not well visualized. There is trace to mild mitral regurgitation. The tricuspid valve appears structurally normal. There is no pulmonic regurgitation present. The aortic root size is normal. Normal inferior vena cava with normal inspiratory collapse consistent with estimated right atrial pre ssure of 5 mmHg. There is no pericardial effusion. CONCLUSIONS -------- 1. The left ventricular size is normal. 2. There is mild concentric left ventricular hypertrophy. 3. Overall left ventricular systolic function is normal with, an EF between 60 - 65 %. 4. The right ventricle is mildly enlarged. 5. There is trace to mild mitral regurgitation. 6. There is no pericardial effusion. TASSEL MAKING MACHINE OPERATOR: Gwendolyn Ramachandran [facility]
--- NOTE | 2019-11-16 13:15 | P.CRDCN ---
History of Present Illness History of present illness: HISTORY OF PRESENTING ILLNESS This is a pleasant 54-year-old male past medical history significant for osteoarthritis, daily alcohol intake and former nicotine dependence. 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 We have been asked to see in consultation for syncope. He underwent right knee arthroplasty yesterday. Yesterday while in the bathroom he fell. He states he got dizzy and passed out. Then again this morning while working with physical therapy he had another spell of dizziness and again fell losing consciousness. He states when this occurs he feels light headed, diaphoretic and weak. He denies chest pain, shortness of breath or palpitations. Telemetry tracings indicate persistent sinus bradycardia. Blood pressure yesterday after falling 70/30 today he has been consistently above 100 systolic. The patient states he has always had a low blood pressure and low heart rate. He states he is concerned when he goes home if his blood pressure continues to run low febrile fall and pass out. He did undergo echocardiogram in April 2019 as part of his preoperative evaluation revealing preserved LV systolic function with ejection fraction 60-65%. Preoperative EKGs reveal sinus bradycardia with no acute ischemic changes. There has been no EKG obtained on admission. Laboratory data reviewed, WBC 7.3, hemoglobin 11.9, platelets 146, sodium 132, potassium 4.3, creatinine 0.84, magnesium 1.7, cardiac enzymes negative 3 and TSH 1.63. REVIEW OF SYSTEMS At the time of my exam: CONSTITUTIONAL: Denies fever or chills. CARDIOVASCULAR: Denies chest pain, shortness of breath, orthopnea, PND or pal pitations. RESPIRATORY: Denies cough. GASTROINTESTINAL: Denies abdominal pain, diarrhea, constipation, nausea or vomiting. MUSCULOSKELETAL: Denies myalgias. NEUROLOGIC: Denies numbness, tingling or weakness. ENDOCRINE: Denies fatigue, weight change, polydipsia or polyurina. GENITOURINARY: Denies burning, hematuria or urgency with micturation. HEMATOLOGIC: Denies history of anemia or bleeding. PHYSICAL EXAMINATION Blood pressure 115/68 heart rate 69 afebrile and maintaining oxygen saturation on room air. CONSTITUTIONAL: No apparent distress. HEENT: Head is normocephalic. Pupils are equal, round. Sclerae anicteric. Mucous membranes of the mouth are moist. No JVD. No carotid bruit. CHEST EXAMINATION: Lungs are clear to auscultation. No chest wall tenderness is noted on palpation or with deep breathing. HEART EXAMINATION: Regular rate and rhythm. S1, S2 heard. No murmurs, gallops or rub. ABDOMEN: Soft, nontender. Positive bowel sounds. EXTREMITIES: 2+ peripheral pulses, no lower extremity edema and no calf tenderness. NEUROLOGIC EXAMINATION: Patient is awake, alert and oriented x3. ASSESSMENT Vasovagal syncope Persistent sinus bradycardia, asymptomatic Status post right knee arthroplasty Former nicotine dependence Daily alcohol intake PLAN Repeat 2-D echocardiogram and Doppler study to assess cardiac structure and function. The patient states his mother secondary to an unprovoked pulmonary embolism. Given this family history we recommend DVT prophylaxis with NOAC for 2 weeks. Initiate florinef for 1 month while he is in this recovery phase. Obtain EKG. We will continue to follow and make recommendations accordingly. Thank you kindly for this consultation. Nurse Practitioner note has been reviewed, I agree with a documented findings and plan of care. Patient was seen and examined. Past Medical History Past Medical History: Osteoarthritis (OA) Additional Past Medical History / Comment(s): varicose veins History of Any Multi-Drug Resistant Organisms: None Reported Past Surgical History: Orthopedic Surgery Additional Past Surgical History / Comment(s): LT CLAVICLE SX(Fx), arthroscopy x 2 rt knee, Past Anesthesia/Blood Transfusion Reactions: No Reported Reaction Additional Past Anesthesia/Blood Transfusion Reaction / Comment(s): no hx blood transfusion Smoking Status: Former smoker - Past Family History Mother Family Medical History: Deep Vein Thrombosis (DVT) Father Family Medical History: Cancer Medications and Allergies Home Medications Medication Instructions Recorded Confirmed Type Fish Oil(Dose Unknown) 1 tab PO DAILY 05/04/19 11/14/19 History Multivitamins, Thera [Multivitamin 1 tab PO DAILY 05/04/19 11/14/19 History (formulary)] Ibuprofen 800 mg PO Q8H PRN 11/14/19 11/15/19 History Vitamin D3 (Unk Dose) 1 tab PO DAILY 11/14/19 History Aspirin [Adult Low Dose Aspirin EC] 81 mg PO BID #60 tablet. 11/16/19 Rx HYDROcodone/APAP 7.5-325MG [Ola 1 - 2 each PO Q6HR PRN #56 tab 11/16/19 Rx 7.5-325] Allergies Allergy/AdvReac Type Severity Reaction Status Date / Time No Known Allergies Allergy Verified 11/14/19 12:28 Physical Exam Vitals: Vital Signs Temp Pulse Resp BP Pulse Ox 11/16/19 07:00 97.6 F 69 18 115/68 99 11/16/19 00:39 98.0 F 60 15 111/69 99 11/15/19 19:11 98.4 F 53 L 14 113/66 100 11/15/19 16:11 64 16 109/55 97 11/15/19 16:05 70/30 11/15/19 12:30 89 121/72 11/15/19 12:15 63 108/67 11/15/19 12:00 57 L 113/67 11/15/19 11:45 73 166/70 11/15/19 11:30 64 112/70 11/15/19 11:15 65 106/66 11/15/19 11:00 66 110/70 11/15/19 10:45 66 110/70 11/15/19 10:30 97.8 F 48 L 18 104/64 99 Intake and Output 11/15/19 11/16/19 11/16/19 22:59 06:59 14:59 Intake Total 300 Output Total 950 Balance 300 -950 Intake: Intake, IV Titration 300 Amount Lactated Ringers 1,000 ml 300 @ 100 mls/hr IV .Q10H [facility] Rx#:[id number] Output: Urine 950 Other: Voiding Method Urinal Urinal # Voids 2 Results 11/16/19 05:33 11/15/19 22:41 Cardiac Enzymes 11/15/19 11/15/19 11/16/19 Range/Units 17:09 22:41 05:33 Troponin I <0.012 <0.012 <0.012 (0.000-0.034) ng/mL CBC 11/15/19 11/16/19 Range/Units 22:41 05:33 WBC 11.8 H 7.3 (3.8-10.6) k/uL RBC 3.91 L 3.99 L (4.30-5.90) m/uL Hgb 11.9 L D 11.9 L (13.0-17.5) gm/dL Hct 35.4 L 36.2 L (39.0-53.0) % Plt Count 160 146 L (150-450) k/uL Comprehensive Metabolic Panel 11/15/19 Range/Units 22:41 Sodium 132 L (137-145) mmol/L Potassium 4.3 (3.5-5.1) mmol/L Chloride 103 (98-107) mmol/L Carbon Dioxide 27 (22-30) mmol/L BUN 17 (9-20) mg/dL Creatinine 0.84 (0.66-1.25) mg/dL Glucose 114 H (74-99) mg/dL Calcium 8.6 (8.4-10.2) mg/dL Current Medications Generic Name Dose Route Start Last Admin Trade Name Freq PRN Reason Stop Dose Admin Acetaminophen 650 mg 11/15/19 09:24 Acetaminophen Tab 325 Mg Tab PO Q4HR PRN Pain Scale 1 to 5 Hydrocodone Bitart/Acetaminophen 1 each 11/15/19 09:24 11/15/19 18:33 Hydrocodone/Apap 5-325mg 1 Each Tab PO 1 each Q6HR PRN Administration Pain Scale 1 to 5 Hydrocodone Bitart/Acetaminophen 1 each 11/15/19 09:24 11/16/19 07:23 Hydrocodone/Apap 10-325mg 1 Each Tab PO 1 each Q6H PRN Administration Pain Scale 6 to 10 Aspirin 81 mg 11/15/19 21:00 11/16/19 07:23 Aspirin 81 Mg PO 81 mg BID [facility] Administration Bisacodyl 10 mg 11/15/19 09:24 Bisacodyl 10 Mg Supp RECTAL DAILY PRN Constipation Ropivacaine 1,090 mg/ Bandage/ 0 mg 11/15/19 09:06 11/15/19 09:36 Support Products 1 each MISCELLANE 1,090 mg Q2H PRN Administration Breakthrough Pain Diazepam 2.5 mg 11/15/19 09:24 Diazepam 5 Mg Tab PO Q8HR PRN Mild Spasms Fludrocortisone Acetate 0.1 mg 11/16/19 10:30 Fludrocortisone 0.1 Mg Tab PO DAILY [facility] Hydromorphone HCl 0.25 mg 11/15/19 09:24 Hydromorphone 0.5 Mg/0.5 Ml Syringe IVP Q3HR PRN Pain Scale 1 to 3 Hydromorphone HCl 0.5 mg 11/15/19 09:24 11/16/19 06:00 Hydromorphone 0.5 Mg/0.5 Ml Syringe IVP 0.5 mg Q3HR PRN Administration Pain Scale 4 to 6 Hydromorphone HCl 1 mg 11/15/19 09:24 Hydromorphone 1 Mg/Ml 1 Ml Syringe IVP Q3HR PRN Pain Scale 7 to 10 Hydroxyzine Pamoate 25 mg 11/15/19 09:24 Hydroxyzine Pamoate 25 Mg Cap PO Q4HR PRN Nausea, Anxiety, Pain Control Lactated Ringer's 1,000 mls @ 100 mls/hr 11/15/19 09:30 11/16/19 01:26 Lactated Ringers IV Not Given .Q10H [facility] Lidocaine HCl 0.1 ml 11/15/19 05:47 Lidocaine 1% (10mg/Ml) For Iv Start INTRADERMA PER PROTOCOL PRN IV Start Magnesium Hydroxide 2,400 mg 11/15/19 09:24 Magnesium Hydroxide 2,400 Mg/10 Ml Cup PO DAILY PRN Constipation Multivitamins 1 each 11/16/19 12:00 Multivitamins, Thera 1 Each Tab PO DAILY@1200 [facility] Naloxone HCl 0.2 mg 11/15/19 09:24 Naloxone 0.4 Mg/Ml 1 Ml Vial IV Q2M PRN Opioid Reversal Ondansetron HCl 4 mg 11/15/19 09:24 Ondansetron 4 Mg/2 Ml Vial IVP Q8HR PRN Nausea And Vomiting Senna/Docusate Sodium 2 each 11/15/19 21:00 11/15/19 20:20 Sennosides-Docusate Sodium 1 Each Tab PO Not Given HS [facility] Sodium Biphosphate/Sodium Phosphate 133 ml 11/15/19 09:24 Na Phos,M-B/Na Phos,Di-Ba 133 Ml Enema RECTAL DAILY PRN Constipation Temazepam 15 mg 11/15/19 09:24 Temazepam 15 Mg Cap PO HS PRN Insomnia Tramadol HCl 50 mg 11/15/19 09:24 Tramadol 50 Mg Tab PO Q6HR PRN Pain Scale 1 to 5 Intake and Output 11/15/19 11/16/19 11/16/19 22:59 06:59 14:59 Intake Total 300 Output Total 950 Balance 300 -950 Intake: Intake, IV Titration 300 Amount Lactated Ringers 1,000 ml 300 @ 100 mls/hr IV .Q10H [facility] Rx#:[id number] Output: Urine 950 Other: Voiding Method Urinal Urinal # Voids 2 11/16/19 05:33 11/15/19 22:41
[2019-11-16] MEDS: SENNOSIDES-DOCUSATE SODIUM 1 EACH TAB PO SCH (20:35)
--- NOTE | 2019-11-16 22:28 | P.PN ---
Subjective Progress Note Date: 11/16/19 Principal diagnosis: Status post right total knee arthroplasty. Postoperative day 1 Syncope. Status post fall likely orthostatic hypotension. Patient is a 54-year-old male with a known history of osteoarthritis, previous history of smoking and family history of DVT was admitted to the hospital for elective right total knee arthroplasty. Patient tolerated the procedure very w ell. Currently pain is controlled with nerve block. Patient otherwise denied any complaints of chest pain or shortness of breath. No headache or dizziness or lightheadedness. No fever no chills. Apparently patient had an unwitnessed fall while he was in the bathroom. Patient sustained abrasion on the forehead and denied any complaints of headache. No other complaints of joint pain. CT head showed no acute process. Laboratory showed blood sugar is 127 and troponin less than 0.012 11/16/2019 Patient is currently lying in the bed comfortably. Patient did have a mild episode of near syncope while he was walking in the hallway with physical therapy. Patient had to sit on the chair immediately. Denied any complaints of chest pain or shortness of breath. Patient felt lightheaded otherwise. Patient is chronically hypotensive and blood pressure was low. Started on midodrine as per cardiology recommendations. 2D echocardiogram was ordered. Patient is afebrile. No cough or sputum production. No nausea vomiting or abdominal pain or diarrhea. Current medications reviewed. Objective - Vital Signs Vital signs: Vital Signs Temp 97.6 F 11/16/19 07:00 Pulse 69 11/16/19 07:00 Resp 18 11/16/19 07:00 BP 115/68 11/16/19 07:00 Pulse Ox 99 11/16/19 07:00 Intake & Output 11/15/19 11/16/19 11/16/19 18:59 06:59 18:59 Intake Total 1451 300 Output Total 100 950 Balance 1351 -650 Weight 102.5 kg Intake: IV 1451 Intake, IV Titration 300 Amount Lactated Ringers 1,000 ml 300 @ 100 mls/hr IV .Q10H [facility] Rx#:[id number] Output: Urine 950 Estimated Blood Loss 100 Other: Voiding Method Urinal Urinal # Voids 2 - Exam PHYSICAL EXAMINATION: Patient is lying in the bed comfortably, no acute distress, awake alert and oriented.. HEENT: Normocephalic. Neck is supple. Pupils reactive. Nostrils clear. Oral cavity is moist. Ears reveal no drainage. Neck reveals no JVD, carotid bruits, or thyromegaly. CHEST EXAMINATION: Trachea is central. Symmetrical expansion. Lung franklin clear to auscultation and percussion. CARDIAC: Normal S1, S2 with no gallops. No murmurs ABDOMEN: Soft. Mild lower abdominal tenderness. No guarding no rigidity. Bowel sounds normal. No organomegaly. No abdominal bruits. Extremities: reveal no edema. No clubbing or cyanosis Neurologically awake, alert, oriented x3 with well-coordinated movements. No focal deficits noted Skin: No rash or skin lesions. Psychiatric: Coperative. Nonsuicidal Musculoskeletal: No joint swelling or deformity. Right knee surgical site is intact. No swelling noted.. - Labs CBC & Chem 7: 11/16/19 05:33 11/15/19 22:41 Labs: Abnormal Lab Results - Last 24 Hours (Table) 11/15/19 11/15/19 11/15/19 Range/Units 16:34 22:41 22:41 WBC 11.8 H (3.8-10.6) k/uL RBC 3.91 L (4.30-5.90) m/uL Hgb 11.9 L D (13.0-17.5) gm/dL Hct 35.4 L (39.0-53.0) % Plt Count (150-450) k/uL Neutrophils # 9.7 H (1.3-7.7) k/uL Sodium 132 L (137-145) mmol/L Glucose 114 H (74-99) mg/dL POC Glucose (mg/dL) 127 H (75-99) mg/dL 11/16/19 Range/Units 05:33 WBC (3.8-10.6) k/uL RBC 3.99 L (4.30-5.90) m/uL Hgb 11.9 L (13.0-17.5) gm/dL Hct 36.2 L (39.0-53.0) % Plt Count 146 L (150-450) k/uL Neutrophils # (1.3-7.7) k/uL Sodium (137-145) mmol/L Glucose (74-99) mg/dL POC Glucose (mg/dL) (75-99) mg/dL Assessment and Plan Assessment: Status post right total knee arthroplasty. Postoperative day 1 Syncope. Status post fall likely orthostatic hypotension. CT head negative. Osteoarthritis Family history of DVTs in his mother. DVT prophylaxis. Plan: Patient will be continued on pain management, bowel regimen and DVT prophylaxis. Encourage incentive spirometry and ambulation. . Continue to follow closely. PT OT was consulted. Otherwise continue with current management and further recommendations based on the clinical course.
[2019-11-17] MEDS: HYDROcodone/APAP 10-325MG 1 EACH TAB PO PRN (00:01)
[2019-11-17 07:40] VITALS: BP 114/79; PULSE 80; RESP 16; TEMP 98.1
[2019-11-17] MEDS: ASPIRIN 81 MG PO SCH (07:57)
[2019-11-17] MEDS: FLUDROCORTISONE 0.1 MG TAB PO SCH (07:57)
[2019-11-17] MEDS: HYDROcodone/APAP 5-325MG 1 EACH TAB PO PRN ×2 (07:59→12:53)
--- NOTE | 2019-11-17 08:56 | P.PN ---
Subjective Progress Note Date: 11/17/19 Principal diagnosis: Syncope This is a very pleasant 54-year-old gentleman who was Admitted to the hospital with an episode of syncope and developed right knee injury where he underwent the right knee arthroplasty. He was diagnosed with vasovagal syncope as well as bradycardia. He was started on Florinef. The patient was seen today November 162019. He has been asymptomatic from a cardiovascular standpoint of view. An echocardiogram was performed and showed normal left ventricular systolic function. The blood pressure has been within normal limits. From the cardiovascular standpoint of view, the patient possibly can be discharged home in the next 12-24 hours. Objective - Vital Signs Vital signs: Vital Signs Temp 98.1 F 11/17/19 07:00 Pulse 80 11/17/19 07:00 Resp 16 11/17/19 07:00 BP 114/79 11/17/19 07:00 Pulse Ox 100 11/17/19 07:00 Intake & Output 11/16/19 11/17/19 11/17/19 18:59 06:59 18:59 Intake Total 300 Output Total 950 2300 Balance -950 -2000 Intake: Intake, IV Titration 300 Amount Lactated Ringers 1,000 ml 300 @ 100 mls/hr IV .Q10H [facility] Rx#:[id number] Output: Urine 950 2300 Other: Voiding Method Urinal Urinal # Voids 2 - Constitutional General appearance: Present: no acute distress - Respiratory Respiratory: bilateral: CTA - Cardiovascular Rhythm: regular Heart sounds: normal: S1, S2 - Labs CBC & Chem 7: 11/16/19 05:33 11/15/19 22:41 Assessment and Plan Assessment: Assessment #1 vasovagal syncope #2 right knee injury and status post surgery #3 multiple comorbid conditions Plan #1 continue the current medical regimen #2 the patient can be discharged home the next 12-24 hours
--- NOTE | 2019-11-17 11:00 | P.DS ---
Providers Date of admission: 11/16/19 06:37 Expected date of discharge: 11/17/19 Attending physician: Maurice Snyder Consults: 11/15/19 09:24 Consult Physician Routine Consulting Provider: Anali Whitmore Consult Reason/Comments: post op medical management Do you want consulting provider notified?: Yes 11/15/19 16:23 Consult Physician Routine Consulting Provider: Nguyễn Suarez Consult Reason/Comments: syncope and bradycardia Do you want consulting provider notified?: Yes Primary care physician: Blu Santamaria - Discharge Diagnosis(es) (1) Primary osteoarthritis of right knee Current Visit: Yes Status: Acute (2) Status post total right knee replacement Current Visit: Yes Status: Acute Priority: Medium Hospital Course: This is a 54-year-old male who was last seen with complaint of continued right knee pain. The patient has a known history of degenerative arthritis of the right knee and presents to discuss surgical options. After discussion and consideration the patient elects to proceed with total right knee arthroplasty. The patient is seen preoperatively by his primary care physicianand cleared for surgery. The patient is admitted to [facility] for total right knee arthro plasty. The procedure is performed without complication. He had a syncopal episode in the evening of surgery. He had computed tomography scan of the brain which showed no acute bleed or injury. He was seen by cardiology who manages blood pressure. He is doing well on postoperative day #2 Vital signs are stable at discharge. Labs are stable at discharge. The patient is ambulating well with walker with minimal assistance. The patient is discharged to home on postop day #2 pending medical clearance. Please see orders and refer to the [facility] rec for accurate list of medications. Plan - Discharge Summary Discharge Rx Participant: No New Discharge Prescriptions: New Aspirin [Adult Low Dose Aspirin EC] 81 mg PO BID #60 tablet. HYDROcodone/APAP 7.5-325MG [Cut Off 7.5-325] 1 - 2 each PO Q6HR PRN #56 tab PRN Reason: Pain Fludrocortisone [Florinef] 0.1 mg PO DAILY #30 tab No Action Multivitamins, Thera [Multivitamin (formulary)] 1 tab PO DAILY Fish Oil(Dose Unknown) 1 tab PO DAILY Ibuprofen 800 mg PO Q8H PRN PRN Reason: Pain Vitamin D3 (Unk Dose) 1 tab PO DAILY Discharge Medication List Fish Oil(Dose Unknown) 1 tab PO DAILY 05/04/19 [History] Multivitamins, Thera [Multivitamin (formulary)] 1 tab PO DAILY 05/04/19 [History] Ibuprofen 800 mg PO Q8H PRN 11/14/19 [History] Vitamin D3 (Unk Dose) 1 tab PO DAILY 11/14/19 [History] Aspirin [Adult Low Dose Aspirin EC] 81 mg PO BID #60 tablet.dr 11/16/19 [Rx] Fludrocortisone [Florinef] 0.1 mg PO DAILY #30 tab 11/16/19 [Rx] HYDROcodone/APAP 7.5-325MG [Cut Off 7.5-325] 1 - 2 each PO Q6HR PRN #56 tab 11/16/19 [Rx] Follow up Appointment(s)/Referral(s): Jabier Helms MD [STAFF PHYSICIAN] - 2 Weeks Blu Santamaria DO [Primary Care Provider] - 1-2 Days [facility], [REFERRING] - As Needed Maurice Snyder MD [STAFF PHYSICIAN] - 10 Days Patient Instructions/Handouts: *Surgery [facility] - On-Q Pain Pump Discharge Instructions Activity/Diet/Wound Care/Special Instructions: Keep wound clean and dry Take meds as directed Follow-up with Dr. Snyder in office Weight bear as tolerated May shower in 3 days if no bleeding
[2019-11-17] MEDS: MULTIVITAMINS, THERA 1 EACH TAB PO SCH (12:54)
--- NOTE | 2019-11-21 19:42 | P.PN ---
Subjective Progress Note Date: 11/17/19 Principal diagnosis: Status post right total knee arthroplasty. Postoperative day 1 Syncope. Status post fall likely orthostatic hypotension. Patient is a 54-year-old male with a known history of osteoarthritis, previous history of smoking and family history of DVT was admitted to the hospital for elective right total knee arthroplasty. Patient tolerated the procedure very w ell. Currently pain is controlled with nerve block. Patient otherwise denied any complaints of chest pain or shortness of breath. No headache or dizziness or lightheadedness. No fever no chills. Apparently patient had an unwitnessed fall while he was in the bathroom. Patient sustained abrasion on the forehead and denied any complaints of headache. No other complaints of joint pain. CT head showed no acute process. Laboratory showed blood sugar is 127 and troponin less than 0.012 11/16/2019 Patient is currently lying in the bed comfortably. Patient did have a mild episode of near syncope while he was walking in the hallway with physical therapy. Patient had to sit on the chair immediately. Denied any complaints of chest pain or shortness of breath. Patient felt lightheaded otherwise. Patient is chronically hypotensive and blood pressure was low. Started on midodrine as per cardiology recommendations. 2D echocardiogram was ordered. Patient is afebrile. No cough or sputum production. No nausea vomiting or abdominal pain or diarrhea. 11/17/2019 Patient currently denies any complaints of dizziness or lightheadedness. Blood pressures controlled and 2D echocardiogram showed normal ejection fraction and no significant valve motion abnormalities. Patient is cleared from cardiology standpoint. Able to participate in physical therapy. Continued on midodrine and anticoagulation. Discharge medications reviewed. Current medications reviewed. Objective - Vital Signs Vital signs: Vital Signs Temp 98.1 F 11/17/19 07:00 Pulse 80 11/17/19 07:00 Resp 16 11/17/19 07:00 BP 114/79 11/17/19 07:00 Pulse Ox 100 11/17/19 07:00 Intake & Output 11/17/19 11/17/19 11/18/19 06:59 18:59 06:59 Intake Total 300 Output Total 2300 Balance -1999 Intake: Intake, IV Titration 300 Amount Lactated Ringers 1,000 ml 300 @ 100 mls/hr IV .Q10H [facility] Rx#:[id number] Output: Urine 2300 Other: Voiding Method Urinal # Voids 2 - Exam PHYSICAL EXAMINATION: Patient is lying in the bed comfortably, no acute distress, awake alert and oriented.. HEENT: Normocephalic. Neck is supple. Pupils reactive. Nostrils clear. Oral cavity is moist. Ears reveal no drainage. Neck reveals no JVD, carotid bruits, or thyromegaly. CHEST EXAMINATION: Trachea is central. Symmetrical expansion. Lung franklin clear to auscultation and percussion. CARDIAC: Normal S1, S2 with no gallops. No murmurs ABDOMEN: Soft. Mild lower abdominal tenderness. No guarding no rigidity. Bowel sounds normal. No organomegaly. No abdominal bruits. Extremities: reveal no edema. No clubbing or cyanosis Neurologically awake, alert, oriented x3 with well-coordinated movements. No focal deficits noted Skin: No rash or skin lesions. Psychiatric: Coperative. Nonsuicidal Musculoskeletal: No joint swelling or deformity. Right knee surgical site is intact. No swelling noted.. - Labs CBC & Chem 7: 11/16/19 05:33 11/15/19 22:41 Assessment and Plan Assessment: Status post right total knee arthroplasty. Postoperative day 2 Syncope. Status post fall likely orthostatic hypotension. CT head negative. Osteoarthritis Family history of DVTs in his mother. DVT prophylaxis. Plan: Continue with Midrin and anticoagulation. Patient will be continued on pain management, bowel regimen and DVT prophylaxis. Encourage incentive spirometry and ambulation. . Continue to follow closely. PT OT was consulted. Otherwise continue with current management and further recommendations based on the clinical course.
== END 2019-11-17 13:00 | disposition home health service (06) ==
LOC: OR 05:31 → 4SSUR 09:00 → OR 11-16 06:37
PROVIDERS: ADMIT Orthopaedic Surgery Sports Medicine; ATTEND Orthopaedic Surgery Sports Medicine
DX: M17.11 Unilateral primary osteoarthritis, right knee (principal); M25.761 Osteophyte, right knee; M21.061 Valgus deformity, not elsewhere classified, right knee; M71.21 Synovial cyst of popliteal space [Baker], right knee; R55 Syncope and collapse; R00.1 Bradycardia, unspecified; R42 Dizziness and giddiness; R61 Generalized hyperhidrosis; R53.1 Weakness; S00.81XA Abrasion of other part of head, initial encounter; S89.91XA Unspecified injury of right lower leg, initial encounter; E04.1 Nontoxic single thyroid nodule; I83.90 Asymptomatic varicose veins of unspecified lower extremity; Z79.1 Long term (current) use of non-steroidal anti-inflammatories (NSAID); Z97.3 Presence of spectacles and contact lenses; Z98.890 Other specified postprocedural states; Z87.891 Personal history of nicotine dependence; Z87.81 Personal history of (healed) traumatic fracture; W19.XXXA Unspecified fall, initial encounter; Y92.231 Patient bathroom in hospital as the place of occurrence of the external cause; Z80.9 Family history of malignant neoplasm, unspecified; Z82.49 Family history of ischemic heart disease and other diseases of the circulatory system
CPT/HCPCS: 93306; 93005; 97116; 97110; 97161; 64448; 76942; 80048; 84443; 82533; 83735; 84484 ×2; 85025 ×2; 88300; 73560; 70450; 27447; G0378 ×2; C1776; C1713; J2250; J0171; J1200; J1100; J0690 ×2; J2405; J3010; J1885; J2795 ×2; J2704; J0735; J1170 ×2

== ENCOUNTER → 2022-02-23 | Outpatient (CLI) | payer OTHER ==
--- NOTE | 2022-02-23 16:10 | US ---
EXAMINATION TYPE: US venous doppler duplex LE LT DATE OF EXAM: 02/23/2022 3:58 PM COMPARISON: US CLINICAL HISTORY: R60.0 Localized Edema. Edema in the left x 5 days. SIDE PERFORMED: Left TECHNIQUE: The lower extremity deep venous system is examined utilizing real time linear array sonog jace with graded compression, doppler sonography and color-flow sonography. VESSELS IMAGED: Common Femoral Vein Deep Femoral Vein Greater Saphenous Vein * Femoral Vein Popliteal Vein Small Saphenous Vein * Proximal Calf Veins (* superficial vessels) Left Leg: Internal echoes seen within the popliteal vein, prox calf veins, and superficial vessel wi thin the posterior knee. Compressions deferred at these segments. Lack of color flow seen within thes e segments. IMPRESSION: Deep vein thrombosis of the left lower extremity extending from the left femoral vein to the leg. A [place] level critical message alert has been initiated for Blu Santamaria DO via the [employer] Critical Results System on 02/23/2022 4:08 PM. This message alert has been sent to Blu Capps nd, DO via the preferences provided by the clinician for the receipt of Radiology Critical Findings. Message ID [id number].
== END | disposition home or self-care (01) ==
LOC: RADUSWWP 15:37
PROVIDERS: ATTEND Family Medicine
DX: I82.412 Acute embolism and thrombosis of left femoral vein (principal)

== ENCOUNTER → 2022-03-08 | Outpatient (CLI) | payer OTHER ==
--- NOTE | 2022-03-08 10:00 | CT ---
CT CHEST FOR PULMONARY EMBOLISM. EXAMINATION TYPE: CT angio chest DATE OF EXAM: 03/08/2022 INDICATION: Tachycardia CT DLP: 435.40 mGycm, Automated exposure control for dose reduction was used. CONTRAST: Patient injected with 100 ml mL of Isovue 370. COMPARISON: 06/29/2017 TECHNIQUE: CT of the chest is performed on a spiral scan at 2 mm thick sections. Study is performed with intravenous contrast timed for evaluation for pulmonary embolism. This will limit additional po rtions of the evaluation. 3-D MIP images reconstructed by the technologist are reviewed on the compu ter in the coronal and sagittal planes. FINDINGS: No persistent filling defects are evident to suggest an acute pulmonary embolism. There are some part ial filling defects identified within the secondary branches of the right and left mid lung. Example image series 4 image 91 and image 93. Some chronic minimal thrombus or artifact could be considered. This is nonobstructing. No mediastinal or hilar adenopathy enlarged by CT criteria is evident. The ascending aorta diameter at the level of the main pulmonary artery is 3.7 cm. The main pulmonary artery diameter at the bifur cation is 2.8 cm. There is some scarring at the left apex reviewed 1.8 cm, slightly more prominent than 2018 right apic al lateral thickening is present, present previously. There are scattered areas of pneumonitis within the right mid and lower lung field. Findings are nons pecific, correlate for atypical pneumonia. Follow-up is recommended. Follow-up is recommended. Limited CT section through the upper abdomen are unremarkable. IMPRESSIONS: 1. No obstructing pulmonary emboli. Artifact versus nonobstructing minimal emboli may be present disc ussed above. 2. Scattered areas of pneumonitis in the right middle lobe and right lower lobe are nonspecific. Kristina elate for atypical pneumonia. Follow-up is recommended. 3. Some thickening at the left apex slightly more prominent than comparison. Short-term follow-up is recommended in 6 months to confirm stability.
== END | disposition home or self-care (01) ==
LOC: RADCTMAIN 08:58
PROVIDERS: ATTEND Family Medicine
DX: J18.9 Pneumonia, unspecified organism (principal); R00.0 Tachycardia, unspecified; R91.8 Other nonspecific abnormal finding of lung field
CPT/HCPCS: 71275; Q9967

== ENCOUNTER → 2023-04-08 | Outpatient (CLI) | payer OTHER ==
--- NOTE | 2023-04-08 13:16 | CTL ---
EXAMINATION TYPE: CT Low Dose Lung DATE OF EXAM ORDERED: 04/08/2023 HISTORY: . Lung cancer screening CT DLP: 136.[address] CTDI: 3.3 mGy Automated exposure control for dose reduction was used. COMPARISON: 03/08/2022. TECHNIQUE: Low dose computed tomography scan was performed through the chest at 1 mm thick sections a nd reconstructed images in multiple planes at 1 mm and [address] DIAGNOSTIC QUALITY: Satisfactory FINDINGS: LUNG NODULES: No significant nodules are seen. LUNGS: COPD: Severity: No significant smoking-related changes are seen. Fibrosis: Severity: None Lymph nodes: No adenopathy. Other findings: RIGHT PLEURAL SPACE: Effusion: None Calcification: None Thickening: None Pneumothorax: None LEFT PLEURAL SPACE: Effusion: None Calcification: None Thickening: None Pneumothorax: None HEART: Heart Size: Normal Coronary Calcification: None Pericardial Effusion: None OTHER FINDINGS: Upper abdomen: None Bony thorax: None Supraclavicular region: None Other: None IMPRESSION: 1. Negative lung cancer screening examination for significant pulmonary nodules. 2. No acute findings. CT LUNG RAD AND CT CHEST RECOMMENDATION: Lung-Rad 1 Negative: Continue annual screening with LDCT in 12 months. S Modifier (other clinically significant findings): None.
== END | disposition home or self-care (01) ==
LOC: RADCTMAIN 12:47
PROVIDERS: ATTEND Internal Medicine Hematology & Oncology
DX: Z12.2 Encounter for screening for malignant neoplasm of respiratory organs (principal); Z87.891 Personal history of nicotine dependence
CPT/HCPCS: 71271